=== PATIENT | male | born 1955 | race Hispanic/Latino ===

== ENCOUNTER 2022-03-27 20:08 | Emergency (ER) | payer MEDICARE ==
[~2022-03-27] VITALS: Ht 175.3 cm; Wt 92.5 kg
[2022-03-27 21:04] LABS: BASOPHILS % (AUTO) 0.3 % (0.0-5.0); EOSINOPHILS % (AUTO) 3.8 % (0.0-8.0); HEMATOCRIT 39.8 % (42-54); LYMPHOCYTES % (AUTO) 33.4 % (21.0-51.0); MEAN CORPUSCULAR HEMOGLOBIN 32.1 pg (27.0-33.0); MEAN CORPUSCULAR HGB CONC 35.7 g/dL (32.0-36.0); MONOCYTES % (AUTO) 11.2 % (3.0-13.0); PLATELET COUNT (AUTO) 219 K/uL (130-400); RED BLOOD CELL COUNT(AUTO) 4.42 MIL/uL (4.50-6.20); RED CELL DISTRIBUTION WIDTH 12.1 % (11.0-15.5); WHITE BLOOD COUNT (AUTO) 8.9 K/uL (4.8-10.8)
[2022-03-27 21:18] LABS: CREATININE 0.8 mg/dL (0.5-1.5); POTASSIUM 3.8 mmol/L (3.5-5.1)
[2022-03-27 21:24] LABS: ALBUMIN 3.7 g/dL (3.5-5.0); TOTAL PROTEIN, SERUM 7.2 g/dL (6.0-8.3)
[2022-03-27] MEDS ORDERED: FUROSEMIDE 40MG VIAL IV ONE (22:00)
[2022-03-27] MEDS ORDERED: HYDRALAZINE 25MG TABLET PO ONE (22:30)
[2022-03-27] MEDS ORDERED: HYDRALAZINE 20MG/ML VIAL IV ONE (22:30)
[2022-03-27] MEDS ORDERED: HYDRALAZINE 20MG/ML VIAL ONE (22:36)
[2022-03-27 23:21] VITALS: BP 152/76
== END 2022-03-28 00:14 | disposition home or self-care (01) ==
LOC: EDH 20:08
DX: I10 Essential (primary) hypertension (principal); E11.9 Type 2 diabetes mellitus without complications; E78.00 Pure hypercholesterolemia, unspecified; N40.0 Benign prostatic hyperplasia without lower urinary tract symptoms
CPT/HCPCS: 99284; 96374; 70450; 84484; 80053; 85025; 36415; 93005; J0360

== ENCOUNTER 2022-03-28 13:28 | Emergency (ER) | payer MEDICARE ==
[~2022-03-28] VITALS: Ht 175.3 cm; Wt 92.5 kg
[2022-03-28 15:18] LABS: BASOPHILS % (AUTO) 0.3 % (0.0-5.0); EOSINOPHILS % (AUTO) 1.1 % (0.0-8.0); HEMATOCRIT 39.3 % (42-54); LYMPHOCYTES % (AUTO) 21.6 % (21.0-51.0); MEAN CORPUSCULAR HEMOGLOBIN 32.7 pg (27.0-33.0); MEAN CORPUSCULAR HGB CONC 36.6 g/dL (32.0-36.0); MEAN CORPUSCULAR VOLUME 89.3 fL (79-99); MONOCYTES % (AUTO) 7.5 % (3.0-13.0); PLATELET COUNT (AUTO) 233 K/uL (130-400)
[2022-03-28 15:24] LABS: CREATININE 0.7 mg/dL (0.5-1.5); POTASSIUM 3.7 mmol/L (3.5-5.1)
[2022-03-28 15:33] LABS: ALBUMIN 3.6 g/dL (3.5-5.0); TOTAL PROTEIN, SERUM 7.1 g/dL (6.0-8.3)
[2022-03-28] MEDS ORDERED: 0.9%NACL 1000ML 1,000 ML IV SCH (17:24)
[2022-03-28 18:48] VITALS: BP 167/85
== END 2022-03-28 19:16 | disposition home or self-care (01) ==
LOC: EDH 13:28
DX: E87.1 Hypo-osmolality and hyponatremia (principal); M94.0 Chondrocostal junction syndrome [Tietze]; E87.79 Other fluid overload; E86.0 Dehydration; I10 Essential (primary) hypertension; E11.9 Type 2 diabetes mellitus without complications; E78.00 Pure hypercholesterolemia, unspecified; F17.200 Nicotine dependence, unspecified, uncomplicated
CPT/HCPCS: 84484 ×2; 80053; 85025; 36415; 99283; 96360; 96361; J7030